=== PATIENT | female | born 1990 | race Two or more races ===

== ENCOUNTER 2021-05-25 13:01 | Emergency (ER) | payer OTHER ==
[~2021-05-25] VITALS: Ht 172.7 cm; Wt 90.7 kg
[2021-05-25] MEDS ORDERED: DICLOFENAC POTA50 MG PO (17:27)
[2021-05-25] MEDS ORDERED: ORPHENADRINE C100 MG PO (17:27)
== END 2021-05-25 19:41 ==
LOC: ER 13:01
DX: S93.492A Sprain of other ligament of left ankle, initial encounter (principal); S82.892A Other fracture of left lower leg, initial encounter for closed fracture; X50.1XXA Overexertion from prolonged static or awkward postures, initial encounter; Y93.89 Activity, other specified; Y92.89 Other specified places as the place of occurrence of the external cause; Y99.8 Other external cause status